=== PATIENT | male | born 1995 | race Caucasian/White ===

== ENCOUNTER 2025-03-10 12:17 | Emergency (ER) | payer OTHER ==
[~2025-03-10] VITALS: Ht 177.8 cm; Wt 77.0 kg
[2025-03-10] MEDS: ACETAMINOPHEN *IV* 1,000 MG in IV 1 EA IV ONE (13:51)
[2025-03-10] MEDS: NS (Normal Saline) 0.9% 1,000 ML IV ONE (13:51)
[2025-03-10] MEDS: ACETAMINOPHEN 500 MG TAB PO ONE ×2 (14:50→21:27)
[2025-03-10] MEDS: KETOROLAC 60 MG/2 ML VIAL IM ONE (21:27)
[2025-03-10 21:35] VITALS: BP 159/96; TEMP 97.1; O2SAT 97
== END 2025-03-10 21:43 | disposition home or self-care (01) ==
LOC: M ED 12:17
DX: S06.0X9A Concussion with loss of consciousness of unspecified duration, initial encounter (principal); S16.1XXA Strain of muscle, fascia and tendon at neck level, initial encounter; W01.198A Fall on same level from slipping, tripping and stumbling with subsequent striking against other object, initial encounter; M50.322 Other cervical disc degeneration at C5-C6 level; T14.8XXA Other injury of unspecified body region, initial encounter; Y92.009 Unspecified place in unspecified non-institutional (private) residence as the place of occurrence of the external cause; Y93.89 Activity, other specified; Y99.9 Unspecified external cause status
CPT/HCPCS: 70450; 70551; 72125; 72141; 96372; 99284; J1885